=== PATIENT | male | born 1980 | race Caucasian/White ===

== ENCOUNTER 2023-05-11 09:40 | Outpatient (AMB) | payer OTHER, SELFPAY ==
--- NOTE | 2023-05-11 10:06 | MHC.OFFVIS ---
Intake Vital Signs 05/11/23 10:07 Height 5 ft 9 in Weight 298 lb BMI 44.0 Intake Visit Reasons: OV - Left knee pain Intake Note: Santi 43 yr old angolan speaking male presents today fo a new patient visit for his left knee pain and giving way. Patient states that he injured his left knee over 1 year ago. He twisted his knee and had acute onset of pain. Since that time his symptoms have gotten worse in spite of continued non operative treatments. He has done physical therapy for 12 weeks over the last 6 months. He has also tried Tylenol and anti-inflammatory medicines which gave him minimal relief. He has had injections in the past which gave him no relief. He states that his left knee will give out several times per day. 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 Physical Exam Vital Signs: BMI result Body Mass Index 44.0 Const Other: Well-nourished well-developed very friendly male awake alert and oriented x3 in no acute distress Extrem Other: Bilateral lower extremity examination shows good capillary refill, no skin lesions noted, normal sensation light touch Left knee examination shows a minimal effusion, minimal crepitus with range of motion, tenderness along his medial joint line, positive Janes's test, no instability Results Reviewed Results Reviewed: X-rays of the patient's left knee taken today show minimal diffuse joint space narrowing, no acute bony abnormalities Assessment & Plan Assessment & Plan (1) Tear of medial meniscus of left knee: Code(s): S83.242A - Other tear of medial meniscus, current injury, left knee, initial encounter Plan: Mr. Denis Granados presents with progressively worsening left knee pain and mechanical symptoms most likely due to a tear of his medial meniscus. Thus, I will send him for MRI of his left knee for further evaluation. I will see him back once the imaging studies completed to discuss the findings and treatment options. He will contact me prior to that time should his symptoms worsen in any way. I spent 22 minutes in reviewing the patient's records and imaging studies, seeing the patient and documenting in the medical record. Coding Level of Care Code New Pt Level 2 (39623) Diagnoses Tear of medial meniscus of left knee S83.242A
[2023-05-11 10:07] VITALS: BMI 44.0
== END 2023-05-11 10:24 | disposition home or self-care (01) ==
PROVIDERS: Visit Provider Orthopaedic Surgery
DX: S83.242A Other tear of medial meniscus, current injury, left knee, initial encounter (principal)
CPT/HCPCS: 99202

== ENCOUNTER 2023-05-11 10:11 | Outpatient (REF) | payer OTHER, SELFPAY ==
--- NOTE | ~2023-05-11 | XR_ITS ---
EXAMINATION: XR KNEE, LEFT CLINICAL INFORMATION: Right knee pain COMPARISON: None available. TECHNIQUE: Four views of the left knee. FINDINGS: Mild medial knee joint narrowing. Question small suprapatellar effusion. No fracture or dislocation. Mild quadriceps enthesopathy. XR/XR knee LT 3V IMPRESSION: Mild medial knee joint narrowing and question small left suprapatellar effusion.
== END 2023-05-11 10:12 | disposition home or self-care (01) ==
LOC: HO.HOSX 10:11
PROVIDERS: Visit Provider Orthopaedic Surgery
DX: S83.242A Other tear of medial meniscus, current injury, left knee, initial encounter (principal); M25.561 Pain in right knee
CPT/HCPCS: 73562; 99202

== ENCOUNTER 2023-06-15 10:18 | Outpatient (AMB) | payer OTHER, SELFPAY ==
--- NOTE | 2023-06-15 10:23 | A.OFFVIS_ITS ---
Intake Vital Signs 06/15/23 10:30 Height 5 ft 9 in Weight 298 lb BMI 44.0 Intake Visit Reasons: OV - Left knee pain Intake Note: aSnti 43 yr old south african speaking male presents today for a follow up of his left knee. An MRI was ordered at his last visit, but patient was unable to complete MRI due to claustrophobia. Patient states that he has started taking Aleve as needed for his discomfort. He states that his symptoms have improved significantly over the last week. He denies any fevers or chills. 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 Physical Exam Vital Signs: BMI result Body Mass Index 44.0 Const Other: Well-nourished well-developed very friendly male awake alert and oriented x3 in no acute distress Extrem Other: Bilateral lower extremity examination shows good capillary refill, no skin lesions noted, normal sensation light touch Left knee examination shows a minimal effusion, mild crepitus with range of motion, tenderness medial joint line, positive Janes's test, no instability Assessment & Plan Assessment & Plan (1) Tear of medial meniscus of left knee: Code(s): S83.242A - Other tear of medial meniscus, current injury, left knee, initial encounter Plan: Mr. Denis Granados presents with left knee pain and mechanical symptoms due to early degenerative joint disease as well as a tear of his medial meniscus. I had a lengthy discussion with the patient regarding the treatment options. At this point patient's symptoms are improving with Aleve as needed. He will continue with his activity modifications. He will follow up with me on an as- needed basis should his symptoms worsen in any way. I spent 21 minutes in reviewing the patient's records and imaging studies, seeing the patient and documenting in the medical record. Coding Level of Care Code Est Pt Level 2 (20489) Diagnoses Tear of medial meniscus of left knee S83.242A
[2023-06-15 10:30] VITALS: BMI 44.0
== END 2023-06-15 10:37 | disposition home or self-care (01) ==
PROVIDERS: Visit Provider Orthopaedic Surgery
DX: S83.242A Other tear of medial meniscus, current injury, left knee, initial encounter (principal)
CPT/HCPCS: 99212

== ENCOUNTER → 2023-06-15 10:18 | Outpatient (BNVA) | payer OTHER, SELFPAY | PROVIDERS: Visit Provider Orthopaedic Surgery | DX: S83.242D Other tear of medial meniscus, current injury, left knee, subsequent encounter (principal) | CPT/HCPCS: 99212 ==

== ENCOUNTER 2023-11-04 10:02 | Outpatient (REF) | payer OTHER, SELFPAY ==
[2023-11-04 12:14] LABS: Anion Gap 12 (12-20); Blood Urea Nitrogen 11 mg/dL (9-16); Calcium 9.4 mg/dL (8.4-10.2); Carbon Dioxide 29 mmol/L (22-29); Chloride 103 mmol/L (96-108); Estimated Glomerular Filt Rate > 60; Glucose Random 104 mg/dL (60-115); Potassium 4.5 mmol/L (3.3-5.1); Sodium 139 mmol/L (135-145)
== END 2023-11-04 10:03 | disposition home or self-care (01) ==
LOC: HO.HHCL 10:02
PROVIDERS: Visit Provider Internal Medicine Cardiovascular Disease
DX: I10 Essential (primary) hypertension (principal)
CPT/HCPCS: 36415; 80048

== ENCOUNTER 2024-06-18 15:03 | Outpatient (REF) | payer OTHER, SELFPAY ==
[2024-06-18 16:59] LABS: MANUAL DIFF FLAG NO
[2024-06-18 17:10] LABS: Basophils Percent Auto 0.3 % (0-2); Eosinophils Percent Auto 0.4 % (0-4); Hemoglobin 16.2 g/dl (14.0-18.0); Imm Gran Abs Auto 0.03 X10*3/uL (0.00-0.03); Imm Gran Pct Auto 0.3 % (0.0-0.4); Lymphocytes Absolute Auto 2.9 X10*3/uL (1.2-4.9); Lymphocytes Percent Auto 29.6 % (20-40); Mean Corpuscular HGB Conc 34.5 g/dl (31.0-36.0); Mean Corpuscular Hemoglobin 30.2 pg (27.0-33.0); Mean Corpuscular Volume 87.5 fL (80.0-98.0); Mean Platelet Volume 10.4 fL (9.4-12.4); Monocytes Absolute Auto 0.7 X10*3/uL (0.1-1.2); Monocytes Percent Auto 7.5 % (2-11); Neutrophils Absolute Auto 6.1 x10*3/uL (2.0-8.3); Neutrophils Percent Auto 61.9 % (45-73); Platelet Count 213 X10*3/uL (160-400); Red Blood Count 5.37 X10*6/uL (4.60-5.80); Red Cell Distribution Width 13.3 % (11.0-16.0); White Blood Count 9.9 X10*3/uL (4.8-10.8)
[2024-06-18 17:22] LABS: Anion Gap 10 (12-20); Blood Urea Nitrogen 12 mg/dL (9-16); Calcium 9.3 mg/dL (8.4-10.2); Carbon Dioxide 29 mmol/L (22-29); Chloride 105 mmol/L (96-108); Estimated Glomerular Filt Rate > 60; Glucose Random 105 mg/dL (60-115); Potassium 3.7 mmol/L (3.3-5.1); Sodium 140 mmol/L (135-145)
== END 2024-06-18 15:04 | disposition home or self-care (01) ==
LOC: HO.HHCL 15:03
PROVIDERS: Visit Provider Family Medicine
DX: Z01.818 Encounter for other preprocedural examination (principal)
CPT/HCPCS: 36415; 80048; 85025